=== PATIENT | male | born 1970 | race Caucasian/White ===

== ENCOUNTER → 2020-11-04 | Outpatient (CLI) | payer OTHER ==
--- NOTE | 2020-11-04 14:04 | RAD ---
CT chest without contrast: Reason for examination: Abnormality between the heart and ribs on chest x-ray. No chest x-ray available for comparison. Helical images were obtained through the chest with no contrast administered. Reconstruction was perf ormed in sagittal and coronal planes. Exposure: One or more of the following individualized dose reduction techniques were utilized for thi s examination: 1. Automated exposure control 2. Adjustment of the mA and/or kV according to patient size 3. Use of iterative reconstruction technique. No abnormality seen at the thyroid gland. The trachea and mainstem bronchi show no intraluminal lesio ns. No abnormality seen at the esophagus. The thoracic aorta is normal in course and caliber. The hea rt size is normal with no pericardial effusion evident. The lung moseley are clear with no nodules, in filtrates or pleural effusions and no pneumothorax. No acute bony abnormalities are seen. There is a small hypodense lesion in the left lobe of the liver measuring 12 mm in size with Hounsfie ld units consistent with a cyst. No abnormality seen at the spleen, adrenal glands, pancreas, gallbla dder or visualized portions of the kidneys. IMPRESSION: No acute abnormality evident in the chest. Small 12 mm lesion consistent with cyst in the left lobe liver. Electronically signed by: Ludivina Baez MD (11/04/2020 2:02 PM) MICHELL
== END ==
LOC: CT 11:51
PROVIDERS: ATTEND Family Medicine
DX: R07.89 Other chest pain (principal); K76.89 Other specified diseases of liver
CPT/HCPCS: 71250